=== PATIENT | male | born 1975 | race Two or more races ===

== ENCOUNTER 2019-08-04 03:06 | Emergency (ER) | payer OTHER ==
[2019-08-04 03:33] VITALS: BP 142/80; PULSE 80; TEMP 98.9; BMI 23.6
--- NOTE | 2019-08-04 04:03 | PDOC ---
History of Present Illness - General Chief Complaint: Lightheaded Stated Complaint: DIZZINESS, CHEST DISCOMFORT Time Seen by Provider: 08/04/19 04:02 - History of Present Illness Initial Comments: 08/04/19 04:03 Mr. Nieves is a 43 yo male w/ pmh of spinal stenosis who presents for evaluation of reported lightheaded feeling and "chest discomfort" at triage. Patient unwilling to participate in history upon interview. Past History - Psycho Social/Smoking Cessation Hx Smoking History: Unknown if ever smoked Have you smoked in the past 12 months: No Information on smoking cessation initiated: No Hx Alcohol Use: No Drug/Substance Use Hx: No Review of Systems - Review of Systems Comments:: 08/04/19 04:08 Unable to obtain further. *Physical Exam - Vital Signs Last Vital Signs Temp Pulse Resp BP Pulse Ox 98.9 F 80 20 142/80 98 08/04/19 03:32 08/04/19 03:32 08/04/19 03:32 08/04/19 03:32 08/04/19 03:32 - Physical Exam 08/04/19 04:09 GENERAL: Awake, alert, and fully oriented, in no acute distress HEAD: No signs of trauma, normocephalic, atraumatic EYES: PERRLA, EOMI, sclera anicteric, conjunctiva clear ENT: Auricles normal inspection, hearing grossly normal, nares patent, oropharynx clear without exudates. Moist mucosa NECK: Normal ROM, supple, no lymphadenopathy, JVD, or masses LUNGS: No distress, speaks full sentences, clear to auscultation bilaterally HEART: Regular rate and rhythm, normal S1 and S2, no murmurs, rubs or gallops, peripheral pulses normal and equal bilaterally. ABDOMEN: Soft, nontender, normoactive bowel sounds. No guarding, no rebound. No masses EXTREMITIES: Normal inspection, Normal range of motion, no edema. No clubbing or cyanosis. NEUROLOGICAL: Cranial nerves II through XII grossly intact. Normal speech, normal gait, no focal sensorimotor deficits SKIN: Warm, Dry, normal turgor, no rashes or lesions noted. Medical Decision Making - Medical Decision Making 08/04/19 04:09 Mr. Nieves is a 43 yo male w/ pmh as described who presents for evaluation of reported lightheaded feelings and chest discomfort at triage. Patient unwilling to participate in examination or respond to questions. Patient combative. EKG previously done normal sinus rhythm, normal rate, normal axis, normal intervals. No ST elevations or depressions. Patient continually refusing to participate. Patient to be escorted from ER Discharge - Discharge Information Problems reviewed: Yes Clinical Impression/Diagnosis: Uncooperative behavior Disposition: HOME - Follow up/Referral - Patient Discharge Instructions - Post Discharge Activity
--- NOTE | 2019-08-04 04:53 | PDOC ---
Attending Attestation - Resident Resident Name: Quan Crowell - ED Attending Attestation I have performed the following: I have examined & evaluated the patient, The case was reviewed & discussed with the resident, I agree w/resident's findings & plan, Exceptions are as noted - HPI HPI: 08/10/19 20:44 See resident HPI - Physicial Exam PE: 08/10/19 20:44 Patient refused my exam - Medical Decision Making 08/10/19 20:44 43M endorsed light headedness and chest discomfort in triage, refusing further evaluation Patient is not intoxicated, alert, oriented x3, no apparent distress, walks with a strong steady gait, no obvious focal deficits, grossly normal motor function
--- NOTE | 2019-08-04 15:32 | EKG ---
Test Reason : Blood Pressure : / mmHG Vent. Rate : 077 BPM Atrial Rate : 077 BPM P-R Int : 138 ms QRS Dur : 078 ms QT Int : 400 ms P-R-T Axes : 044 021 029 degrees QTc Int : 452 ms NORMAL SINUS RHYTHM NO PREVIOUS ECGS AVAILABLE Confirmed by LUANN MONTENEGRO MD ([id number]) on 08/04/2019 3:32:11 PM Referred By: Confirmed By:LUANN MONTENEGRO MD
== END 2019-08-04 05:09 | disposition home or self-care (01) ==
LOC: JER 03:06
DX: R46.89 Other symptoms and signs involving appearance and behavior (principal)
CPT/HCPCS: 93005; 93010; 99282-25

== ENCOUNTER 2019-09-03 10:15 | Emergency (ER) | payer SELFPAY ==
[2019-09-03 10:21] VITALS: BP 102/75; PULSE 87; TEMP 98.1; BMI 26.1
[2019-09-03] MEDS ORDERED: METHOCARBAMOL 500 MG TABLET PO ONE (10:57)
[2019-09-03] MEDS ORDERED: NAPROXEN 500 MG TABLET PO ONE (10:57)
--- NOTE | 2019-09-03 11:04 | PDOC ---
History of Present Illness - General Chief Complaint: Respiratory Stated Complaint: Cold Symptoms Time Seen by Provider: 09/03/19 10:23 History Source: Patient Exam Limitations: Clinical Condition - History of Present Illness Initial Comments: 09/03/19 11:00 Patient with a history of spinal stenosis present with complaint of 2 weeks history of persistent cough, body aches, nasal congestion, runny and persistent lower back pain which has been causing him to roll his bilateral ankles and now with aching ankle pain. Patient reported has been traveling between [place] and [place] and was told to have spinal stenosis and is being treated with Dilaudid but has not had spinal stenosis treated due to keep moving around. Patient report increased pain to lower back with ambulation. Patient report Eyad has not been helping with his symptoms. Denies saddle paresthesia, urinary or fecal incontinence. Denies any other symptoms Is this a multiple visit Asthma Patient?: No Timing/Duration: other (2 weeks) Past History - Past Medical History Allergies/Adverse Reactions: Allergies Allergy/AdvReac Type Severity Reaction Status Date / Time No Known Allergies Allergy Verified 09/03/19 10:22 Home Medications: Ambulatory Orders Azithromycin [Zithromax 250mg Tablets -] 250 mg PO UTDICT #6 tab 09/03/19 Benzonatate [Tessalon Pearls -] 100 mg PO Q8H PRN #12 capsule 09/03/19 Methocarbamol [Robaxin -] 500 mg PO TID #21 tablet 09/03/19 Methylprednisolone [Medrol Dose Sherif] 4 mg PO ASDIR #21 tablet 09/03/19 COPD: No - Immunization History Immunization Up to Date: Yes - Psycho Social/Smoking Cessation Hx Smoking History: Current every day smoker Have you smoked in the past 12 months: No Information on smoking cessation initiated: No Hx Alcohol Use: No Drug/Substance Use Hx: No Review of Systems - Review of Systems Able to Perform ROS?: Yes Is the patient limited Slovenian proficient: No Constitutional: No: Chills, Fever, Malaise HEENTM: Yes: Symptoms Reported, See HPI, Nose Congestion. No: Eye Pain, Blurred Vision, Tearing, Recent change in vision, Double Vision, Cataracts, Ear Pain, Ocular Prothesis, Ear Discharge, Nose Pain, Tinnitus, Nose Bleeding, Hearing Loss, Throat Pain, Throat Swelling, Mouth Pain, Dental Problems, Difficulty Swallowing, Mouth Swelling, Other Respiratory: Yes: Symptoms reported, See HPI, Cough. No: Orthopnea, Shortness of Breath, SOB with Exertion, SOB at Rest, Stridor, Wheezing, Productive cough, Hemoptysis, Other Cardiac (ROS): No: Symptoms Reported, See HPI, Chest Pain, Edema, Irregular Heart Rate, Lightheadedness, Palpitations, Syncope, Chest Tightness, Other ABD/GI: No: Symptoms Reported, See HPI, Nausea, Poor Fluid Intake, Vomiting, Abdominal cramping : No: Symptoms Reported, Frequency, Incontinence Musculoskeletal: Yes: Symptoms Reported, See HPI, Back Pain, Joint Pain (b/l ankle aching pain) Integumentary: No: Symptoms Reported, Bruising, Change in Color Neurological: No: Symptoms reported, Numbness, Paresthesia, Tingling, Weakness All Other Systems: Reviewed and Negative *Physical Exam - Vital Signs Last Vital Signs Temp Pulse Resp BP Pulse Ox 98.1 F 87 18 102/75 99 09/03/19 10:19 09/03/19 10:19 09/03/19 10:19 09/03/19 10:19 09/03/19 10:19 - Physical Exam 09/03/19 11:15 GENERAL: Well developed, well nourished. Awake and alert. No acute distress. CARDIOVASCULAR: Regular rate and rhythm. No murmurs, rubs, or gallops. PULMONARY: No evidence of respiratory distress. Lungs clear to auscultation bilaterally. No wheezing, rales or rhonchi. ABDOMINAL: Soft. Non-tender. Non-distended. No rebound or guarding. No organomegaly. Normoactive bowel sounds MUSCULOSKELETAL : mild tenderness over lateral aspect of bilateral ankles. No visible swelling or deformity. No ecchymosis or bruising to bilateral ankles. Negative anterior and posterior drawer test of bilateral ankles. No definite tenderness elicited on lumbosacral spine. No bony deformities SKIN: Warm and dry. Normal capillary refill. No rashes. No cyanosis. NEUROLOGICAL: Alert, awake, appropriate. No motor deficits in the lower extremities. Gait is normal without ataxia. PSYCHIATRIC: Cooperative. Good eye contact. Appropriate mood and affect. General Appearance: Yes: Nourished, Appropriately Dressed, Mild Distress ED Treatment Course - RADIOLOGY Radiology Studies Ordered: Category Date Time Status ANKLE-LEFT [RAD] Stat Radiology 09/03/19 10:54 Ordered ANKLE-RIGHT [RAD] Stat Radiology 09/03/19 10:54 Ordered CHEST PA & LAT [RAD] Stat Radiology 09/03/19 10:54 Ordered Medical Decision Making - Medical Decision Making 09/03/19 11:01 Patient with a history of spinal stenosis present with complaint of 2 weeks history of persistent cough, body aches, nasal congestion, runny and persistent lower back pain which has been causing him to roll his bilateral ankles and now with aching ankle pain. Patient reported has been traveling between [place] and [place] and was told to have spinal stenosis and is being treated with Dilaudid but has not had spinal stenosis treated due to keep moving around. Patient report increased pain to lower back with ambulation. Patient report Eyad has not been helping with his symptoms. Denies saddle paresthesia, urinary or fecal incontinence. Denies any other symptoms Exam significant for mild tenderness to lateral aspect of bilateral ankles with no visible swelling or deformity. Negative anterior and posterior drawer test of left and right ankles. Lungs clear to auscultation bilateral. Patient afebrile in no acute respiratory distress. No spinal tenderness elicited on exam. Patient with mild limp to left ankle due to pain. Due to persistent cough over 2 weeks, will do chest x-ray to rule out acute chest pathology. Patient requests x-ray of ankles to make sure there is no abnormality to ankle. Naproxen 500 mg p.o. and Robaxin 500 mg p.o. ordered for pain and spasm to back. Treat based on imaging results 09/03/19 11:33 Chest x-ray shows no acute infiltrate or abnormality. Bilateral ankles x-ray shows no acute fracture or dislocation. Patient symptoms likely upper respiratory infection but given symptoms been persistent for over 2 weeks, will treat with Z-Sherif and Tessalon Perles for URI. Patient also be given naproxen as needed for back pain Robaxin for spasm with neurosurgery follow-up for management of spinal stenosis. Patient stable for discharge Discharge - Discharge Information Problems reviewed: Yes Clinical Impression/Diagnosis: URI with cough and congestion, Malaise Spinal stenosis Qualifiers: Spinal region: unspecified Qualified Code(s): M48.00 - Spinal stenosis, site unspecified Ankle sprain Qualifiers: Encounter type: initial encounter Involved ligament of ankle: unspecified ligament Laterality: unspecified laterality Qualified Code(s): S93.409A - Sprain of unspecified ligament of unspecified ankle, initial encounter Condition: Stable Disposition: HOME - Admission No - Additional Discharge Information Prescriptions: Methylprednisolone [Medrol Dose Sherif] 4 mg PO ASDIR #21 tablet Methocarbamol [Robaxin -] 500 mg PO TID #21 tablet Benzonatate [Tessalon Pearls -] 100 mg PO Q8H PRN #12 capsule PRN Reason: Cough Azithromycin [Zithromax 250mg Tablets -] 250 mg PO UTDICT #6 tab - Follow up/Referral Referrals: Frederick Fitzgerald [Primary Care Provider] - Moise Lino MD, FAANS [Staff Physician] - - Patient Discharge Instructions Patient Printed Discharge Instructions: DI for Acute Bronchitis Additional Instructions: Your checks x-ray shows no pneumonia. Your ankle x-ray shows no acute fracture or dislocation. Your symptoms likely upper respiratory infection. Take prescribed medication as prescribed for cough and congestion. Take prescribed medication anti-inflammatory and muscle relaxer for back pains. Follow-up referred orthopedic deployment specialist Dr. Rodriges for management of spinal stenosis - Post Discharge Activity
[2019-09-03] MEDS ORDERED: NAPROXEN 500 MG TABLET ONE (11:10)
[2019-09-03] MEDS ORDERED: METHOCARBAMOL 500 MG TABLET ONE (11:10)
[2019-09-03] MEDS ORDERED: LIDOCAINE 5% TOPICAL PATCH ONE (11:25)
[2019-09-03] MEDS ORDERED: LIDOCAINE 5% TOPICAL PATCH TP ONE (11:29)
== END 2019-09-03 11:30 | disposition home or self-care (01) ==
LOC: JERFT 10:15
DX: M48.00 Spinal stenosis, site unspecified (principal); S93.409A Sprain of unspecified ligament of unspecified ankle, initial encounter; J06.9 Acute upper respiratory infection, unspecified; R05 Cough; R09.89 Other specified symptoms and signs involving the circulatory and respiratory systems; R53.81 Other malaise; F17.210 Nicotine dependence, cigarettes, uncomplicated
CPT/HCPCS: 71046-TC-FY; 73610-TC-LT-FY; 73610-TC-RT-FY; 99284-25

== ENCOUNTER 2022-08-27 23:22 | Emergency (ER) | payer OTHER ==
[2022-08-27 23:26] VITALS: BP 114/76; PULSE 90; RESP 18; TEMP 97.6; BMI 24.3
[2022-08-28 01:45] LABS: BASO % 0.3 % (0-2.0); EOS % 0.9 % (0-4.5); HEMATOCRIT 40.4 % (35.4-49); HEMOGLOBIN 13.6 GM/dL (11.7-16.9); LYMPH % 15.8 % (8-40); MCH 32.6 pg (25.7-33.7); MCHC 33.6 g/dl (32.0-35.9); MEAN CELL VOLUME 97.1 fl (80-96); MEAN PLT VOLUME 7.6 fl (7.5-11.1); MONO % 5.7 % (3.8-10.2); NEUT % 77.3 % (42.8-82.8); PLATELET COUNT 262 10^3/uL (134-434); RBC 4.16 M/mm3 (4.00-5.60); RDW 14.2 % (11.9-15.9); WHITE BLOOD COUNT 14.6 K/mm3 (4.0-10.0)
[2022-08-28 02:06] LABS: ALBUMIN 3.7 g/dl (3.4-5.0); BLOOD UREA NITROGEN 15.2 mg/dL (7-18); CALCIUM 8.9 mg/dL (8.5-10.1); MAGNESIUM 2.2 mg/dL (1.8-2.4)
[2022-08-28 02:09] LABS: CREATININE 0.8 mg/dL (0.55-1.3); PHOSPHOROUS 4.1 mg/dL (2.5-4.9)
[2022-08-28 02:11] LABS: BILIRUBIN,TOTAL 0.5 mg/dL (0.2-1)
== END 2022-08-28 06:05 | disposition home or self-care (01) ==
LOC: JER 23:22
DX: M62.81 Muscle weakness (generalized) (principal)
CPT/HCPCS: 0241U-QW; 36415; 70450-TC; 80053; 82607; 83735; 84100; 85025; 99284-25